=== PATIENT | male | born 1950 | race Asian ===

== ENCOUNTER 2017-03-11 10:13 | Day surgery (SDC) | payer OTHER ==
[~2017-03-11] VITALS: Ht 160 cm; Wt 74.8 kg
[2017-03-11 11:00] VITALS: Ht 160 cm; Wt 74.8 kg
[2017-03-11] MEDS ORDERED: LOSARTAN PO (11:11)
[2017-03-11] MEDS ORDERED: DIABETES PILL PO (11:11)
[2017-03-11] MEDS ORDERED: ASPI-664 PO (11:11)
--- NOTE | 2017-03-11 12:04 | OPPN ---
Date/Time of Note Date/Time of Note DATE: 03/11/17 TIME: 12:03 Operative Report Preoperative Diagnosis Screening Postoperative Diagnosis Internal and external hemorrhoids No colon neoplasm is identified Operation/Procedure Performed Colonoscopy Surgeon see signature line certified surgical first assistant None Anesthesia: moderate sedation Estimated blood loss: none Transfusion Required none Specimen None Grafts/Implants none Complications none SURY RODRIGUES MD Mar 11, 2017 12:04
--- NOTE | 2017-03-11 12:04 | OPPN ---
Date/Time of Note Date/Time of Note DATE: 03/11/17 TIME: 12:03 Operative Report Preoperative Diagnosis Screening Postoperative Diagnosis Internal and external hemorrhoids No colon neoplasm is identified Operation/Procedure Performed Colonoscopy Surgeon see signature line appeals assistant None Anesthesia: moderate sedation Estimated blood loss: none Transfusion Required none Specimen None Grafts/Implants none Complications none SURY RODRIGUES MD Mar 11, 2017 12:04
--- NOTE | 2017-03-11 12:04 | OPPN ---
Date/Time of Note Date/Time of Note DATE: 03/11/17 TIME: 12:03 Operative Report Preoperative Diagnosis Screening Postoperative Diagnosis Internal and external hemorrhoids No colon neoplasm is identified Operation/Procedure Performed Colonoscopy Surgeon see signature line assistant associate full professor None Anesthesia: moderate sedation Estimated blood loss: none Transfusion Required none Specimen None Grafts/Implants none Complications none SURY RODRIGUES MD Mar 11, 2017 12:04
[2017-03-11] MEDS ORDERED: FENTAnyl 50 MCG/ML VIAL ONE (12:11)
[2017-03-11] MEDS ORDERED: MIDAZOLAM 1 MG/ML 2 ML INJ ONE ×2 (12:11)
--- NOTE | 2017-03-12 08:39 | GILP ---
DATE OF PROCEDURE: NAME OF PROCEDURE: Colonoscopy. SURGEON: Sury Traore MD. PREOPERATIVE DIAGNOSIS: Screening colonoscopy. POSTOPERATIVE DIAGNOSES: 1. Colonoscopy all the way to the cecum. 2. Internal and external hemorrhoids. 3. No colon neoplasm was identified. INDICATION FOR THE PROCEDURE: Mr. Eliceo Walton is a 66-year-old male patient who was scheduled f or screening colonoscopy. The procedure and possible complications were well explained to the patient. The patient understood and consented to the procedure. DESCRIPTION OF PROCEDURE: Under the influence of fentanyl and Versed, the colonoscope was carefully introduced in the rectum, and under direct vision, it was advanced all the way to the cecum. FINDINGS: Patient had internal and external hemorrhoids. No colon neoplasm was identified. The patient tolerated the procedure very well and there was no complication from the procedure. At the end of the procedure, he was awake with stable vital signs and he was discharged home to the car e of his family. IMPRESSION: 1. Colonoscopy all the way to the cecum. 2. Internal and external hemorrhoids. 3. No colon neoplasm was identified. PLAN: Next screening colonoscopy in 10 years. Dictated By: SURY MORAN/SULEMAN Conf#: [id number] DID#: [id number]
== END 2017-03-11 15:55 | disposition home or self-care (01) ==
LOC: GIL 10:13
PROVIDERS: ATTEND Internal Medicine Gastroenterology
DX: Z12.11 Encounter for screening for malignant neoplasm of colon (principal); K64.8 Other hemorrhoids; K64.4 Residual hemorrhoidal skin tags; I12.9 Hypertensive chronic kidney disease with stage 1 through stage 4 chronic kidney disease, or unspecified chronic kidney disease; N18.9 Chronic kidney disease, unspecified; E11.9 Type 2 diabetes mellitus without complications
CPT/HCPCS: 45378; 82962; J2250; J3010